=== PATIENT | female | born 1990 | race African-American/Black ===

== ENCOUNTER 2016-10-21 16:55 | Outpatient (CLI) | payer MEDICAID ==
[~2016-10-21] VITALS: Ht 170.2 cm; Wt 92.0 kg
[2016-10-21 17:49] VITALS: Ht 170.2 cm; Wt 92.0 kg
[2016-10-21] MEDS ORDERED: PRENAT PO (17:52)
--- NOTE | 2016-10-21 18:23 | RADRPT ---
PROCEDURE: US biophysical profile. Ultrasound of cervix. CLINICAL INDICATION: Twin gestation. Decreased motion. TECHNIQUE: Multiple sonographic images of the uterus were obtained. Transvaginal sonograp hy of the cervix was also performed. The images were reviewed on a PACS workstation. COMPARISON: No prior studies are available for comparison. FINDINGS: There is a live twin intrauterine gestation. Cervical length with transvaginal sonography is 4.1 cm . Fetus A: heart rate is 161 beats per minute. The position is cephalic. The placenta is . Fundal grade 1. The single largest pocket of amniotic fluid is 3.5 cm. Breathing Movement: 2 Gross Body Movement: 2 Tone: 2 Qualitative Amniotic Fluid Volume: 2 TOTAL: 8 Fetus B: heart rate is 150 beats per minute. The position is breech. The placenta is short fundal grade 1. The single largest pocket of amniotic fluid is 2.9 cm. Breathing Movement: 2 Gross Body Movement: 2 Tone: 2 Qualitative Amniotic Fluid Volume: 2 TOTAL: 8 IMPRESSION: 1. Fetus A biophysical score is 8/8. 2. Fetus B biophysical score is 8/8. RPTAT: QQ .Artie Cho MD, MD Date Time Electronically viewed and signed by .Artie Cho MD, MD on 10/21/2016 18:23 .R/
--- NOTE | 2016-10-21 18:47 | QN ---
Documentation Comment 26 y/o female at 29 weeks ,twin gestation sent in for wellbeing evaluation S/P cerclage in [facility] cervix: 4.1 cm NST on both fetuses are R BPP 04/12 will follow as outpatient JOCELYN LAMB MD Oct 21, 2016 18:47
== END 2016-10-21 18:50 | disposition home or self-care (01) ==
LOC: OBT 16:55 → L-D 16:56 → OBT 18:50
PROVIDERS: ATTEND Obstetrics & Gynecology
DX: O30.003 Twin pregnancy, unspecified number of placenta and unspecified number of amniotic sacs, third trimester (principal); Z3A.29 29 weeks gestation of pregnancy
CPT/HCPCS: 76817; 76818; Z7500; G0463

== ENCOUNTER 2016-11-01 15:55 | Outpatient (CLI) | payer MEDICAID ==
[~2016-11-01] VITALS: Ht 170.2 cm; Wt 94.4 kg
[~2016-11-01 15:55] MED LIST: PRENAT PO
[2016-11-01 17:06] VITALS: BP 94/54; PULSE 85; RESP 18
[2016-11-01 19:42] LABS: URINE BLOOD (Dip) POC Negative (NEGATIVE)
[2016-11-01 20:29] LABS: ADD UMIC YES; URINE BILIRUBIN (Dip) NEGATIVE (NEGATIVE); URINE BLOOD (Dip) NEGATIVE (NEGATIVE); URINE COLOR YELLOW (YELLOW); URINE GLUCOSE (Dip) NEGATIVE (NEGATIVE); URINE KETONES (Dip) TRACE (NEGATIVE); URINE LEUKOCYTE ESTERASE (Dip) 1+ (NEGATIVE); URINE NITRITE (Dip) NEGATIVE (NEGATIVE); URINE TOTAL PROTEIN (Dip) TRACE (NEGATIVE); URINE UROBILINOGEN (Dip) 0.2 E.U./dL (0.1-1.0)
[2016-11-01 20:51] LABS: BACTERIA,URINE MODERATE; SQUAMOUS EPITHELIAL CELL,UR MODERATE; URINE RBCS 0-2 /HPF (0)
--- NOTE | 2016-11-01 20:54 | RADRPT ---
PROCEDURE: US OB. CLINICAL INDICATION: labor TECHNIQUE: Multiple sonographic images of the pelvis were obtained. The images were reviewed on a PACS workstation. COMPARISON: 10/21/2016 FINDINGS: Two live intrauterine pregnancies are seen. A shared placenta is seen which is a fundal location and grade 2. No evidence of placenta previa or abruption is seen. Fetus A: Cardiac activity is present with 124 beats per minute. The large volume of amniotic fluid is 3.9 cm. There is a vertex presentation. Fetus B: The heart rate is 117 beats per minute. The large volume of amniotic fluid is 5.2 c m. The presentation is vertex. The cervix measures 4.5 cm in length and is closed. IMPRESSION: Two live intrauterine pregnancies with the largest volume of amniotic fluid in fetus A of 3.9 cm and fetus B of 5.2 cm. RPTAT: HPNM Physician Mary Date Time Electronically viewed and signed by Physician Mayr on 11/01/2016 20:53 /
--- NOTE | 2016-11-01 22:35 | PN ---
Date/Time of Note Date/Time of Note DATE: 11/01/16 TIME: 22:29 OB Subjective Subjective Subjective 26 Year-old G1 with twin gestation s/p cerclage at 31 wks presents with a chief complaint of possible leakage of fluid. She has been receiving her care with Dr Reza. She states good movement. She denies nausea, vomiting, shortness of breath, chest pain, and abdominal pain between contractions, headache, visual changes, vaginal bleeding. OB Objective Objective Objective General: Patient appears well, alert and oriented, NAD, appropriate mood and affect ABD: gravid, soft, non-tender. Back: No CVA tenderness (B/L) LE: No clubbing, cyanosis, edema, thigh or calf tenderness bilaterally FHT: Baby A: 135 bpm , moderate variability with acceleration, no deceleration- category I Baby B: 140 bpm , moderate variability with acceleration, no deceleration- category I Contractions: Occasional Speculum exam: No vaginal bleeding or LOF seen, neg Nitrazine test OB us performed: Ceph/ceph/ adequate ALPHONSO for both fetus, nml CL OB Assessment/Plan Other plan: 26 Year-old G1 with twin gestation s/p cerclage at 31 wks presents for R/O SROM. Neg Nitrazine test, adequate ALPHONSO for both fetus - FHRs: No sign of metabolic acidosis- Category I - Contractions: Occasional - She has been scheduled for MFM us tomorrow, strongly recommend keep her appointment - Symptoms and sign of labor, preeclampsia, kick count discussed with patient, she voiced understanding. All of her questions answered. - Patient was discharged home in stable condition with the appropriate discharge instructions provided. I would like patient to have close follow-up with her primary physician or outpatient clinic in 1-2 days or return to the ER for worsening symptoms or any other urgent concerns. YESIKA RUFF Nov 01, 2016 22:35
--- NOTE | 2016-11-02 03:14 | TRIAGE ---
OB Triage Datetime Report Generated by CPN: 11/02/2016 03:14 Datetime: 11/01/2016 21:19 Stage of : OB Triage Labor Evaluation Frequency: Irregular Monitor Mode: External Duration (sec)2399: 40-60 Quality: Mild Pattern: Normal: <= 5 Contractions in 10 Minutes Resting Tone [place]: Relaxed Heart Rate FHR Baseline Rate: 135 Monitor Mode: External US FHR Baseline Changes: No Baseline Change Variability: Moderate 6-25 bpm Accelerations: 15X15 Decelerations: None Category: Category I Datetime: 11/01/2016 21:03 Stage of : OB Triage Datetime: 11/01/2016 21:00 Stage of : OB Triage Labor Evaluation Frequency: Irregular Monitor Mode: External Duration (sec)2399: 40-90 Quality: Mild Pattern: Normal: <= 5 Contractions in 10 Minutes Resting Tone [place]: Relaxed Heart Rate FHR Baseline Rate: 135 Monitor Mode: External US Variability: Moderate 6-25 bpm Accelerations: 15X15 Decelerations: None Category: Category I Datetime: 11/01/2016 20:40 Stage of : OB Triage Datetime: 11/01/2016 20:10 Stage of : OB Triage Datetime: 11/01/2016 20:00 Stage of : OB Triage Labor Evaluation Frequency: Occasional Monitor Mode: External Duration (sec)2399: 40-60 Quality: Mild Pattern: Normal: <= 5 Contractions in 10 Minutes Resting Tone [place]: Relaxed Heart Rate FHR Baseline Rate: 130 Monitor Mode: External US Variability: Moderate 6-25 bpm Accelerations: 15X15 Decelerations: None Category: Category I Datetime: 11/01/2016 19:44 Assessment Type: Triage Maternal Assessment Level of Consciousness: Fully Conscious DTR's/Clonus: DTRs 2+; No Clonus Headache: Denies Blurred Vision: No Respiratory Effort: Unlabored; Regular Rhythm; Equal Expansion Breath Sounds, Left: Clear and Equal Breath Sounds, Right: Clear and Equal Nausea/Vomiting: Denies RUQ Epigastric Pain: Denies Lower Extremities Edema: None Degree: None Upper Extremities Edema: None Degree: None Facial Edema: None Fall Risk Assessment History of Falling: (0) No Secondary Diagnosis: (0) No Ambulatory Aid: (0) Bedrest/Nurse Assist IV Therapy: (0) No Gait: (0) Normal/Bedrest/Immobile Mental Status: (0) Oriented to Own Ability Fall Score: 0 Fall Risk Score Definition: No Risk: No action required Datetime: 11/01/2016 19:30 Stage of : OB Triage Datetime: 11/01/2016 18:58 Labor Evaluation Frequency: 5-15 Monitor Mode: External Duration (sec)2399: 60 Quality: Mild Pattern: Normal: <= 5 Contractions in 10 Minutes Resting Tone [place]: Relaxed Heart Rate FHR Baseline Rate: 140 FHR Baseline Changes: No Baseline Change Variability: Moderate 6-25 bpm Accelerations: 15X15 Decelerations: Variable Comments: BLUE Datetime: 11/01/2016 18:00 Monitor Mode: External Duration (sec)2399: x3 Quality: Mild Pattern: Normal: <= 5 Contractions in 10 Minutes Intensity IUP (mmHg): 60 Resting Tone [place]: Relaxed Heart Rate FHR Baseline Rate: 135 FHR Baseline Changes: No Baseline Change Variability: Moderate 6-25 bpm Accelerations: 15X15 Decelerations: None Comments: BLUE Datetime: 11/01/2016 17:02 Stage of : OB Triage Assessment Type: Triage Maternal Assessment Level of Consciousness: Fully Conscious Headache: Denies Blurred Vision: No Respiratory Effort: Unlabored; Regular Rhythm; Equal Expansion Breath Sounds, Left: Clear and Equal Breath Sounds, Right: Clear and Equal Nausea/Vomiting: Denies RUQ Epigastric Pain: Denies Lower Extremities Edema: None Degree: None Upper Extremities Edema: None Degree: None Facial Edema: None Temperature Route: Oral Fall Risk Assessment History of Falling: (0) No Secondary Diagnosis: (0) No Ambulatory Aid: (0) Bedrest/Nurse Assist IV Therapy: (0) No Gait: (0) Normal/Bedrest/Immobile Mental Status: (0) Oriented to Own Ability Fall Score: 0 Fall Risk Score Definition: No Risk: No action required Datetime: 11/01/2016 15:51 Time of Arrival: 11/01/2016 15:48 EGA: 31.0 Chief Complaint: LEAKING OF FLUID [id number] Movement: Present Contractions: Denies/Absent Rupture of Membranes: Unsure Vaginal Discharge: Present Abdominal Trauma: Not Applicable Patient Complaints: Other Initial Plan: EFM x2, ARRIVED WITH ORDERS FOR ROM+ Datetime: 10/21/2016 19:10 Arrived By: Ambulatory Arrived From: Home Movement: Present Contractions: Denies/Absent Rupture of Membranes: Unsure Vaginal Bleeding: None Vaginal Discharge: Present Patient Complaints: Other Datetime: 10/21/2016 18:47 Stage of : OB Triage Datetime: 10/21/2016 17:49 Stage of : OB Triage Datetime: 10/21/2016 17:43 Stage of : OB Triage Assessment Type: Triage EGA: 29.3 Maternal Assessment Level of Consciousness: Fully Conscious DTR's/Clonus: DTRs 2+; No Clonus Headache: Denies Blurred Vision: No Respiratory Effort: Unlabored; Regular Rhythm; Equal Expansion Breath Sounds, Left: Clear and Equal Breath Sounds, Right: Clear and Equal Nausea/Vomiting: Denies RUQ Epigastric Pain: Denies Lower Extremities Edema: None Degree: None Upper Extremities Edema: None Degree: None Facial Edema: None Temperature Route: Axillary Fall Risk Assessment History of Falling: (0) No Secondary Diagnosis: (0) No Ambulatory Aid: (0) Bedrest/Nurse Assist IV Therapy: (0) No Gait: (0) Normal/Bedrest/Immobile Mental Status: (0) Oriented to Own Ability Fall Score: 0 Fall Risk Score Definition: No Risk: No action required Labor Evaluation Frequency: 0 Monitor Mode: External Resting Tone [place]: Relaxed Heart Rate FHR Baseline Rate: 135 Monitor Mode: External US Variability: Moderate 6-25 bpm Decelerations: None Category: Category I Pain Assessment Pain Scale: 0 Pain Presence: None/Denies Pain Goal: 3 Pain Relief Measures: Comfort Measures Datetime: 10/21/2016 17:42 Time of Arrival: 10/21/2016 16:45 Arrived By: Ambulatory Arrived From: Office Chief Complaint: SENT FROM OFFICE FOR DFM OF [facility] B, DENIES LEAKING OF FLUID, UC'S OR BLEEDING Movement: Decreased Contractions: Denies/Absent Rupture of Membranes: Denies Vaginal Discharge: Denies Recent Sexual Intercouse: Denies Abdominal Trauma: Not Applicable Additional Patient Complaints: TWINS, CERCLAGE Time Provider Notified: 10/21/2016 17:49 Provider Notified: ERINN Initial Plan: MONITOR, BPP/ALPHONSO
== END 2016-11-01 21:31 | disposition home or self-care (01) ==
LOC: OBT 15:55 → L-D 15:56 → OBT 21:31
PROVIDERS: ATTEND Obstetrics & Gynecology
DX: O26.893 Other specified pregnancy related conditions, third trimester (principal); O30.003 Twin pregnancy, unspecified number of placenta and unspecified number of amniotic sacs, third trimester; O60.03 Preterm labor without delivery, third trimester; Z3A.31 31 weeks gestation of pregnancy
CPT/HCPCS: 76815; 76817; 81001; 84112; 87086; Z7500; 81003; G0463

== ENCOUNTER 2016-12-09 19:50 | Outpatient (CLI) | payer MEDICAID, OTHER ==
[~2016-12-09] VITALS: Ht 172.7 cm; Wt 100.9 kg
[2016-12-09 19:45] VITALS: BP 103/70; PULSE 90; RESP 18; Ht 172.7 cm; Wt 100.9 kg
[2016-12-09] MEDS ORDERED: LACTATED RINGER'S 1,000 ML IV ONE (21:30)
[2016-12-09] MEDS ORDERED: TERBUTALINE 1 MG/ML INJ SC ONE (21:30)
--- NOTE | 2016-12-09 21:32 | PN ---
Date/Time of Note Date/Time of Note DATE: 12/09/16 TIME: 21:17 OB Subjective Subjective Subjective 26 yo P0 @ 36 wks w cervical cerclage, twin gestation, @ 36 wks, c/o ctx no VB, no LOF, good FM patient had cerclage placed in [place] and is scheduled to have it removed 12/20, at time of her c/section OB Objective Objective Objective VS: 109/73, 101, 20 Abdomen- gravid, n/t FHT- Cat I x 2 [place]- irreg ctx SSE: cerclage stitch intact; cervix appears closed but thinned out Abdomen: WNL Cervical Dilatation: None Membranes: Intact Accelerations: Accelerations Present Decelerations: No Decelerations Varibility: Moderate Contractions on Admission: >10 Minutes Apart Intensity: Mild OB Assessment/Plan Other Assessment: 26 yo P0 @ 36 wks, twin gestation, w ctx; cerclage still in place and not tearing through Other plan: will give terbutaline x 1 if ctx stop, will d/c home and have patient f/u tomorrow JAQUAN FLYNN MD Dec 09, 2016 21:30
== END 2016-12-09 23:30 | disposition home or self-care (01) ==
LOC: L-D 19:50 → OBT 19:50
PROVIDERS: ATTEND Obstetrics & Gynecology
DX: O30.003 Twin pregnancy, unspecified number of placenta and unspecified number of amniotic sacs, third trimester (principal); Z3A.35 35 weeks gestation of pregnancy
CPT/HCPCS: J3105; J7120; Z7500; G0463

== ENCOUNTER 2016-12-20 13:36 | Inpatient (IN) | payer MEDICAID ==
[~2016-12-20] VITALS: Ht 172.7 cm; Wt 100.1 kg
[2016-12-20 14:05] VITALS: Ht 172.7 cm; Wt 100.1 kg
[2016-12-20 14:20] VITALS: BP 121/68; PULSE 69; RESP 20
[2016-12-20] MEDS ORDERED: OXYTOCIN 30 UNITS/LR 500 ML IV SCH (14:30)
[2016-12-20] MEDS ORDERED: MISOPROSTOL 200 MCG TAB PR PRN ×2 (14:30→23:00)
[2016-12-20] MEDS ORDERED: CEFAZOLIN 2 GM/50 ML (PMX) 50 ML IV SCH (14:30)
[2016-12-20] MEDS ORDERED: CARBOPROST 250 MCG INJ IM PRN ×2 (14:30→23:00)
[2016-12-20] MEDS ORDERED: METHYLERGONOVINE 0.2 MG INJ IM PRN ×2 (14:30→23:00)
[2016-12-20] MEDS ORDERED: OXYTOCIN 30 UNITS/LR 500 ML IV PRN ×2 (14:30→23:00)
[2016-12-20 14:38] LABS: ADD SCAN DIFF NO
[2016-12-20 14:41] LABS: BASOPHILS % 0.3 % (0.0-2.0); EOSINOPHILS % 0.4 % (0.0-7.0); HEMATOCRIT 37.4 % (37.0-47.0); HEMOGLOBIN 12.3 g/dl (12.0-16.0); LYMPHOCYTES # 2.5 10^3/ul (0.8-2.9); LYMPHOCYTES % 31.4 % (15.0-51.0); MEAN CORPUSCULAR HEMOGLOBIN 29.8 pg (29.0-33.0); MEAN CORPUSCULAR HGB CONC 32.9 g/dl (32.0-37.0); MEAN CORPUSCULAR VOLUME 90.6 fl (82.0-101.0); MEAN PLATELET VOLUME 14.1 fl (7.4-10.4); MONOCYTE # 0.8 10^3/ul (0.3-0.9); MONOCYTES % 9.6 % (0.0-11.0); NEUTROPHIL # 4.6 10^3/ul (1.6-7.5); NEUTROPHILS % 57.7 % (39.0-77.0); NUCLEATED RED BLOOD CELLS% 0.3 /100WBC (0.0-0.0); PLATELET COUNT 102 10^3/UL (140-415); RED BLOOD COUNT 4.13 10^6/ul (4.20-5.40); RED CELL DISTRIBUTION WIDTH 14.1 % (11.5-14.5); WHITE BLOOD COUNT 7.9 10^3/ul (4.8-10.8)
[2016-12-20] MEDS: LACTATED RINGER'S 1,000 ML IV SCH ×2 (15:09→16:08)
[2016-12-20 15:13] LABS: INR 1.09; PROTIME 14.1 Sec (12.2-14.2); PT RATIO 1.1
[2016-12-20 15:14] LABS: PARTIAL THROMBOPLASTIN TIME 27.3 Sec (25.0-35.0)
[2016-12-20] MEDS ORDERED: OXYTOCIN 30 UNITS/LR 500 ML IV ONE (18:34)
[2016-12-20] MEDS ORDERED: METOCLOPRAMIDE 10 MG INJ ONE (18:34)
[2016-12-20] MEDS ORDERED: EPHEDrine SULFATE 50 MG/5 ML SYG ONE (18:34)
[2016-12-20] MEDS ORDERED: morphine SULFATE/PF (10 MG/10 ML) INJ ONE (18:34)
[2016-12-20] MEDS ORDERED: ONDANSETRON 4 MG INJ ONE (18:34)
[2016-12-20] MEDS ORDERED: OXYTOCIN 10 UNIT INJ ONE (18:34)
--- NOTE | 2016-12-20 19:46 | HP ---
Date/Time of Note Date/Time of Note DATE: 12/20/16 TIME: 19:40 OB - History Hx of Present Free Text/Dictation admitted for primary C/S at 38 weeks for twins & abnormal presentation of 2nd twin Last Menstrual Period: Mar 29, 2016 Estimated Due Date: January 03, 2017 : 1 Para: 0 Care: Good Care Ultrasounds: Normal mid trimester US Obstetrical Complications: Other (multiple gestation ) Medical Complications: None Past Family/Social History * Past Medical, Surgical, Family and Obstetric Histories reviewed from chart. Blood Type: A+ Rubella: immune RPR/VDRL: Negative GBS Status: Negative HBsAG: Negative OB Admission Exam Vital Signs Vital Signs Vital Signs Date Time Temp Pulse Resp B/P Pulse Ox O2 Delivery O2 Flow Rate FiO2 12/20/16 14:20 98.0 69 20 121/68 Room Air Physical Exam HEENT: WNL Heart: Rhythm Normal Lungs: Clear, Equal Abdomen: WNL Extremities: Normal Reflexes: Normal Cervical Dilatation: None Effacement: 0% Station: -3 Membranes: Intact Contractions on Admission: None Last 72 hours Lab Results CBC & BMP 12/20/16 14:20 OB Assessment/Plan Other Assessment: term gestation twin abnormal presentation of second twin Other plan: primary C/S patient [place] will remove cerclage JOCELYN LAMB MD Dec 20, 2016 19:46
[2016-12-20] MEDS ORDERED: HYDROmorphONE 1 MG/ML SYG IV PRN ×2 (20:00)
[2016-12-20] MEDS ORDERED: ONDANSETRON 4 MG INJ IV PRN (20:00)
[2016-12-20] MEDS ORDERED: morphine 2 MG INJ IV PRN ×2 (20:00)
[2016-12-20] MEDS ORDERED: NALOXONE (0.4 MG/ML) INJ IV PRN (20:00)
[2016-12-20] MEDS ORDERED: EPHEDrine SULFATE 50 MG/5 ML SYG IV PRN (20:00)
[2016-12-20] MEDS ORDERED: morphine SULFATE/PF (10 MG/10 ML) INJ SPINAL ONE (20:00)
--- NOTE | 2016-12-20 20:03 | OPR ---
Operative Report Planned Procedure Procedure date Dec 20, 2016 Procedure(s) primary C/S Performed by: JOCELYN LAMB MD Assisting provider: EREN COLE MD Anesthesiologist: CARLOS VALENTE MD Pre-procedure diagnosis term gestation twin abnormal presentation of second twin S/P cerclage Anesthesia Type: spinal Procedure Description Under satisfactory anaesthesia a Pfannenstiel incision was made two fingerbreadth above and parallel to the symphysis of pubis. Incision was extended laterally to the border of the Recti muscles on either sides. Incision was carried down with sharp and blunt dissection until fascia was reached. Anterior Recti muscle fascia was incised in mid portion and incision extended laterally to the border of skin incision. Fascia was mobilized from muscle superiorly and Recti muscles were from midline using sharp and blunt dissection. Peritoneum was visualized; Avoiding bowel and bladder it was incised . Incision was extended superiorly and inferiorly. Bladder blade was placed. Posterior peritoneum covering the lower segment of the uterus and lower segment of the uterus were incised. Incision was extended laterally to the border of Round Lig. on either sides and 1st baby was delivered from OT position without difficulty.After rupturing the membrane 2nd baby's vertex was guided toward incision and 2nd baby was also delivered from OT position without difficulty. Amniotic fluid appeared clear. Cord blood on either was obtained and cords had 3 vessels . Two Placentas were delivered spontaneously and appeared intact and complete. Intrauterine cavity was rubbed with a laparotomy sponge. Uterine incision was closed in 2 layers using running stitches of No1 Monocryl. Hemostasis appeared secure. Ovaries and Fallopian tubes were within normal limits. Announcing needle, lap sponge and instrument count to be correct abdomen was closed in layers as follows: Peritoneum and Recti muscles with running stitches of 20 Vicryl. Fascia with running stitch of No 1 PDS. Subcutaneous tissue with running stitches of 20 Chromic and skin was closed using fang. Afterward patient was placed in lithotomy position. A weigh speculum was introduced into the vagina and also a right angle retractor was placed inside the vagina and the cerclage stitch clearly observed and cut. Hemostasis appeared secure. Patient was returned to supine position carefully and was transferred to [facility] in good condition. Post-Procedure Post-procedure diagnosis S/P C/S and cerclage removal Findings: Twin Specimen removed: No Complications: None Pt Condition post procedure: stable Disposition: PACU Physician Certification I, the undersigned physician, hereby certify that I have discussed the procedure described in this consent form with this patient (or the patient's legal medical billing representative), including: * The risk and benefits of the procedure; * Any adverse reactions that may reasonably be expected to occur; * Any alternative efficacious methods of treatment which may be medically viable ; * The potential problems that may occur during recuperation; * Potential for blood transfusion and associated risks/benefits; and * Any research or economic interest I may have regarding this treatment. I further certify that the patient/legally responsible person was encouraged to ask question and that all questions were answered. JOCELYN LAMB MD Dec 20, 2016 20:01
[2016-12-20] MEDS: KETOROLAC 30 MG INJ IV PRN (20:13)
[2016-12-20 20:31] LABS: BARBITURATES Negative (NEGATIVE); BENZODIAZEPINES Negative (NEGATIVE); CANNABINOIDS Negative (NEGATIVE); COCAINE Negative (NEGATIVE); OPIATES Negative (NEGATIVE)
[2016-12-20 22:30] VITALS: BP 132/71; PULSE 65; RESP 18
[2016-12-20] MEDS ORDERED: ACETAMINOPHEN/CODEINE #3 TAB PO PRN (23:00)
[2016-12-20] MEDS ORDERED: LANOLIN 7 GM TUBE TOP PRN (23:00)
[2016-12-20] MEDS ORDERED: NA PHOSPHATE/BIPHOS 133 ML ENEMA PR PRN (23:00)
[2016-12-20] MEDS: CEFAZOLIN 2 GM/50 ML (PMX) 50 ML IV SCH (23:37)
[2016-12-21] VITALS: BP 125/75; PULSE 65; RESP 18
[2016-12-21] MEDS: CLINDAMYCIN 300 MG CAP PO SCH ×4 (00:46→17:47)
[2016-12-21] MEDS: DIPHENHYDRAMINE 50 MG INJ IV PRN ×2 (01:51→15:20)
[2016-12-21] MEDS: LACTATED RINGER'S 1,000 ML IV SCH ×4 (01:51→22:54)
[2016-12-21 04:00] VITALS: BP 133/73; PULSE 71; RESP 18
[2016-12-21] MEDS: CEFAZOLIN 2 GM/50 ML (PMX) 50 ML IV SCH ×2 (06:31→15:20)
[2016-12-21 08:12] VITALS: BP 120/64; PULSE 74; RESP 18
[2016-12-21 08:12] LABS: ADD SCAN DIFF NO
[2016-12-21] MEDS: KETOROLAC 30 MG INJ IV PRN ×2 (08:12→17:47)
[2016-12-21 08:18] LABS: ABNORMAL IP MESSAGE 1; BASOPHILS % 0.1 % (0.0-2.0); EOSINOPHILS % 0.2 % (0.0-7.0); HEMATOCRIT 33.5 % (37.0-47.0); HEMOGLOBIN 11.3 g/dl (12.0-16.0); LYMPHOCYTES # 2.2 10^3/ul (0.8-2.9); LYMPHOCYTES % 18.1 % (15.0-51.0); MEAN CORPUSCULAR HEMOGLOBIN 30.5 pg (29.0-33.0); MEAN CORPUSCULAR HGB CONC 33.7 g/dl (32.0-37.0); MEAN CORPUSCULAR VOLUME 90.5 fl (82.0-101.0); MONOCYTE # 1.1 10^3/ul (0.3-0.9); MONOCYTES % 8.8 % (0.0-11.0); NEUTROPHIL # 8.8 10^3/ul (1.6-7.5); NEUTROPHILS % 72.3 % (39.0-77.0); PLATELET COUNT 86 10^3/UL (140-415); WHITE BLOOD COUNT 12.1 10^3/ul (4.8-10.8)
[2016-12-21] MEDS: SENNA/DOCUSATE NA (8.6MG/50MG) TAB PO SCH ×2 (09:37→21:25)
[2016-12-21] MEDS ORDERED: BISACODYL 10 MG SUPP PR ONE (10:30)
[2016-12-21 12:05] VITALS: BP 126/72; PULSE 72; RESP 18
[2016-12-21 16:00] VITALS: BP 130/76; PULSE 70; RESP 16
--- NOTE | 2016-12-21 18:42 | PN ---
Date/Time of Note Date/Time of Note DATE: 12/21/16 TIME: 18:40 Assessment/Plan VTE Prophylaxis VTE Prophylaxis Intervention: ambulation Lines/Catheters IV Catheter Type (from Nrsg): Peripheral IV Assessment/Plan Assessment/Plan advance diet and ambulate Subjective 24 Hr Interval Summary passing flatus Constitutional: BM, ambulates, flatus, improved, no complaints, urine output Pain Control: well controlled Exam/Review of Systems Vital Signs Vitals Vital Signs Date Time Temp Pulse Resp B/P Pulse Ox O2 Delivery O2 Flow Rate FiO2 12/21/16 16:00 98.0 70 16 130/76 Room Air 12/21/16 03:27 97 21 Intake and Output 12/20/16 12/20/16 12/21/16 15:00 23:00 07:00 Intake Total 3300 ml 450 ml Output Total 1100 ml Balance 2200 ml 450 ml Exam Free Text/Dictation Abdomen: soft BS + Constitutional: alert, oriented, well developed Psych: nl mood/affect, no complaints Head: atraumatic, normocephalic Eyes: EOMI, nl conjunctiva, nl lids, nl sclera ENMT: mucosa pink and moist, nl external ears & nose, nl lips & teeth, nl nasal mucosa & septum Neck: non-tender, supple Respiratory: clear to auscultation, normal air movement Cardiovascular: nl pulses, regular rate and rhythm Gastrointestinal: nl liver, spleen, non-tender, soft Musculoskeletal: nl extremities to inspection, nl gait and stance Extremities: normal pulses Neurological: TRIAL CONSULTANT II-XII intact, nl mental status, nl speech, nl strength Skin: nl turgor, rash or lesions Lymph: nl lymph nodes Results Result Diagram: 12/21/16 0800 JOCELYN LAMB MD Dec 21, 2016 18:42
[2016-12-21 19:50] VITALS: BP 127/79; PULSE 72; RESP 19
[2016-12-21] MEDS: IBUPROFEN 800 MG TAB PO SCH (21:25)
[2016-12-21] MEDS: OXYCODONE/ACETAMINOPHEN (5/325) TAB PO PRN (23:00)
[2016-12-22] MEDS: CLINDAMYCIN 300 MG CAP PO SCH ×4 (00:03→18:04)
[2016-12-22 03:40] VITALS: BP 108/58; PULSE 69; RESP 19
[2016-12-22] MEDS: OXYCODONE/ACETAMINOPHEN (5/325) TAB PO PRN ×2 (05:21→22:35)
[2016-12-22] MEDS: LACTATED RINGER'S 1,000 ML IV SCH (06:05)
[2016-12-22] MEDS: IBUPROFEN 800 MG TAB PO SCH ×3 (06:05→21:50)
[2016-12-22 08:20] VITALS: BP 102/58; PULSE 79; RESP 19
[2016-12-22] MEDS: SENNA/DOCUSATE NA (8.6MG/50MG) TAB PO SCH ×2 (09:28→21:50)
[2016-12-22] MEDS ORDERED: BISACODYL 10 MG SUPP PR ONE (10:00)
[2016-12-22 15:30] VITALS: BP 122/64; PULSE 86; RESP 19
--- NOTE | 2016-12-22 18:06 | DS ---
Date/Time of Note Date/Time of Note 12/22/16 DATE: 12/22/16 TIME: 18:03 Obstetrical Discharge Record Final Diagnosis Final Diagnosis: Term delivered Other Final Diagnosis S/P C/S Section Section: Primary Primary Indication Twins , Breech Complications Multiple Gestation Condition on Discharge Physical Assessment Last Vitals: see nurses notes Voiding: Yes Bowel Movement: Yes Breast: Soft, non-tender, Filling Fundus: Firm Abdomen and Incision: Soft BS + Incision: healing Episiotomy: NA Calf Tenderness: No Patient Condition: Good JOCELYN LAMB MD Dec 22, 2016 18:05
--- NOTE | 2016-12-22 18:09 | DS ---
Date/Time of Note Date/Time of Note DATE: 12/22/16 TIME: 18:06 Discharge Summary Admission/Discharge Info Admit Date/Time Dec 20, 2016 at 13:36 Discharge Date/Time 12/23/2016 Final Diagnosis S/P C/S Patient Condition: Good Procedures primary C/S Hx of Present Illness 26 y/o female admitted for C/S because of breech presentation of second twin Hospital Course uncomplicated Home Meds Reported Medications Multivit/Min/Fol Ac/Iron/Pren* ( S*) 1 Tab Tab, 1 TAB PO DAILY, TAB 10/21/16 Follow-up Plan 2-3 days in clinic for staple removal JOCELYN LAMB MD Dec 22, 2016 18:09
--- NOTE | 2016-12-22 18:11 | PD.PPDC ---
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 Physician Information 26 y/o female underwent primary C/ S Diagnosis Final Diagnosis: S/P C/S Condition Patient Condition: Good Diet Diet: Resume Regular Diet Activity/Restrictions Activity: January Shower Restrictions: No Exercising No Lifting Nothing in the Vagina Return to Work or School: Feb 21, 2017 Wound/Drain Care Instructions Wound/Drain Care Instructions: Keep clean and dry Follow-up Follow-up with Physician: 2, 3, Day/Days Provider Information: for staple removal Return to clinic for TRAFFIC ASSISTANT Instructions: Fever greater than 101 Chills OB Instructions: Breast Tenderness Depression Surgical Instructions: Incisional Drainage Incisional Redness JOCELYN LAMB MD Dec 22, 2016 18:11
[2016-12-22] MEDS ORDERED: Oxycodone/Acetamin (5/325) PO (18:12)
[2016-12-22] MEDS ORDERED: IBUP800T25 PO (18:12)
[2016-12-22 20:15] VITALS: BP 120/60; PULSE 73; RESP 18
[2016-12-23] MEDS: CLINDAMYCIN 300 MG CAP PO SCH ×4 (00:42→18:00)
[2016-12-23 04:15] VITALS: BP 128/61; PULSE 70; RESP 18
[2016-12-23] MEDS: IBUPROFEN 800 MG TAB PO SCH ×2 (06:08→13:52)
[2016-12-23 08:00] VITALS: BP 119/63; PULSE 66; RESP 20
[2016-12-23] MEDS: OXYCODONE/ACETAMINOPHEN (5/325) TAB PO PRN ×2 (08:42→15:31)
[2016-12-23] MEDS: SENNA/DOCUSATE NA (8.6MG/50MG) TAB PO SCH (08:43)
[2016-12-23] MEDS ORDERED: DIPHTH/TET/ACEL PERTUSS (ADULT) 0.5 ML VIAL IM* ONE (09:00)
[2016-12-23] MEDS ORDERED: MEASLES,MUMPS,RUBELLA VACCINE INJ SC* ONE (09:00)
[2016-12-23 16:00] VITALS: BP 124/72; PULSE 68; RESP 20
== END 2016-12-23 18:00 | disposition home or self-care (01) | DRG 765 ==
LOC: L-D 13:36 → PP1 22:25
PROVIDERS: ADMIT Obstetrics & Gynecology; ATTEND Obstetrics & Gynecology
PROC: 3E00X4Z Introduction of Serum, Toxoid and Vaccine into Skin and Mucous Membranes, External Approach (ICD-10-PCS; 2016-12-20)
PROC: 10D00Z1 Extraction of Products of Conception, Low, Open Approach (ICD-10-PCS; principal; 2016-12-20 15:30)
DX: O32.1XX0 Maternal care for breech presentation, not applicable or unspecified (principal); O30.003 Twin pregnancy, unspecified number of placenta and unspecified number of amniotic sacs, third trimester; Z37.2 Twins, both liveborn; Z23 Encounter for immunization; Z3A.38 38 weeks gestation of pregnancy
CPT/HCPCS: 80307; 85025; 85610; 85730; 86592; 86850; 86900; 86901; 87340; 88307; 90715; 94760; 99464; J0690; J1170; J1200; J1885; J2274; J2405; J2590; J2765; J7120